=== PATIENT | male | born 1980 | race Caucasian/White ===

== ENCOUNTER 2018-04-29 09:35 | Day surgery (SDC) | payer OTHER ==
[~2018-04-29] VITALS: Ht 185.4 cm; Wt 114.2 kg
[~2018-04-29 09:35] MED LIST: CRUTCH3 USE; CYCL10 PO; HYDACE5 PO; IBUP800 PO; META800 PO; NAPR500 PO; OXYCODONE PO; Oxycodone HCl20 M1 PO; RXCYCL10 PO; RXTRAM50 PO; Senna8.6 MG PO; TRAM50 PO
--- NOTE | 2018-04-29 10:41 | NUR ---
04/29/18 1041 Khang Payton 3ML [address] 200 M INJECTED INTO OPSITE AT 1042 BY SURESH.
== END 2018-04-29 11:10 | disposition home or self-care (01) ==
LOC: ORSCSDS 09:35
PROVIDERS: Anesthesiology
PROC: 3E0R33Z Introduction of Anti-inflammatory into Spinal Canal, Percutaneous Approach (ICD-10-PCS; principal; 2018-04-29 10:30)
DX: M54.16 Radiculopathy, lumbar region (principal)
CPT/HCPCS: J1040

== ENCOUNTER 2018-06-15 14:21 | Day surgery (SDC) | payer OTHER ==
[~2018-06-15] VITALS: Ht 185.4 cm; Wt 115.1 kg
== END 2018-06-15 15:16 | disposition home or self-care (01) ==
LOC: ORSCSDS 14:21
PROVIDERS: Anesthesiology
PROC: 3E0R33Z Introduction of Anti-inflammatory into Spinal Canal, Percutaneous Approach (ICD-10-PCS; principal; 2018-06-15 15:00)
DX: M96.1 Postlaminectomy syndrome, not elsewhere classified (principal); M54.16 Radiculopathy, lumbar region; Z79.899 Other long term (current) drug therapy
CPT/HCPCS: J1040

== ENCOUNTER 2019-04-19 18:46 | Emergency (ER) | payer OTHER ==
[~2019-04-19] VITALS: Ht 185.4 cm; Wt 108.9 kg
[2019-04-19 20:04] LABS: BASOPHILS ABSOLUTE AUTO 0.04 K/mm3 (0.00-0.23); BASOPHILS PERCENT AUTO 0 % (0-2); EOSINOPHILS PERCENT AUTO 3 % (0-6); Hematocrit 46.4 % (37.0-53.0); Hemoglobin 16.1 g/dL (13.5-17.5); IMMATURE GRAN ABSOLUTE AUTO 0.02 K/mm3 (0.00-0.10); IMMATURE GRAN PERCENT AUTO 0 % (0-1); LYMPHOCYTES ABSOLUTE AUTO 2.19 K/mm3 (0.84-5.20); LYMPHOCYTES PERCENT AUTO 24 % (21-46); MONOCYTES ABSOLUTE AUTO 0.56 K/mm3 (0.16-1.47); MONOCYTES PERCENT AUTO 6 % (4-13); Mean Corpuscular HGB 30.7 pg (26.0-34.0); Mean Corpuscular HGB Conc 34.7 g/dL (31.5-36.5); Mean Corpuscular Volume 88 fL (80-100); Mean Platelet Volume 11.4 fL (9.1-12.4); NEUTROPHILS ABSOLUTE AUTO 5.91 K/mm3 (1.96-9.15); NEUTROPHILS PERCENT AUTO 66 % (41-73); Platelet Count 215 K/mm3 (150-400); RDW Coefficient Variation 12.1 % (11.7-14.2); RDW Standard Deviation 39.4 fL (35.1-46.3); Red Blood Cell Count 5.25 M/mm3 (4.30-5.90); White Blood Cell Count 9.02 K/mm3 (4.00-11.30)
[2019-04-19 20:27] LABS: Alanine Aminotransfer (ALT/SGP 61 U/L (12-78); Albumin, Blood 4.6 g/dL (3.4-5.0); Albumin/Globulin Ratio 1.3 (0.8-1.8); Alk Phos 65 U/L (50-136); Anion Gap 6 mmol/L (6-16); Aspartate Aminotrans (AST/SGOT 29 U/L (12-37); Bilirubin, Total 0.4 mg/dL (0.1-1.0); Blood Urea Nitrogen 18 mg/dL (8-24); Bun/Creatinine Ratio 16.7 (12.0-20.0); CO2, Blood 29 mmol/L (21-32); Calcium, Blood 9.1 mg/dL (8.5-10.1); Chloride, Blood 107 mmol/L (98-108); Creatinine, Blood 1.08 mg/dL (0.60-1.20); Globulin, Blood 3.5 g/dL (2.2-4.0); Glomerular Filtration Rate >60 (60-); Glucose, Blood 88 mg/dL (70-99); Potassium, Blood 4.1 mmol/L (3.5-5.5); Sodium, Blood 142 mmol/L (136-145); Total Protein, Blood 8.1 g/dL (6.4-8.2)
== END 2019-04-19 23:57 | disposition home or self-care (01) ==
LOC: ER 18:46
PROVIDERS: Physician Assistant
DX: R13.10 Dysphagia, unspecified (principal); Z88.0 Allergy status to penicillin
CPT/HCPCS: 36415; 74022; 80053; 83690; 85025; 96361; 96374; 99283-25; J2405; J7030

== ENCOUNTER 2024-12-27 11:33 | Day surgery (SDC) | payer OTHER ==
[~2024-12-27] VITALS: Ht 185.4 cm; Wt 115.2 kg
[2024-12-27] MEDS ORDERED: CeFAZolin Sodium 2,000 MG VIAL ONE (11:38)
[2024-12-27] MEDS ORDERED: Tranexamic Acid 100 ML IV ONE (11:39)
[2024-12-27] MEDS ORDERED: Midazolam HCl 1MG / ML 2ML Vial ONE (12:32)
[2024-12-27] MEDS ORDERED: FentaNYL Citrate 50 MCG/ML 2 ML Injection ONE ×2 (12:32→14:01)
[2024-12-27] MEDS ORDERED: Lidocaine 1%-Epineph 1:100000 20 ML MDV ONE (12:43)
[2024-12-27] MEDS ORDERED: Bupivacaine 0.5% W/EPI 1:200000 SDV 30 ML Vial ONE (12:45)
[2024-12-27] MEDS ORDERED: Dexamethasone Sod Phos 10 MG/ML 1ML VIAL ONE (12:50)
[2024-12-27] MEDS ORDERED: Ondansetron HCl 2 MG / ML 2ML Vial ONE (12:50)
--- NOTE | 2024-12-27 14:13 | NUR ---
12/27/24 1413 Coral Seth INITIAL INCISION MADE AT [address] HILL. PROCEDURE WAS STOPPED DUE TO INADEQUATE EQUIPMENT PER DR HILL. PROCEDURE RESTART AT 1354 AFTER PROPER EQUIPMENT HAD FINISHED THE STERILIZATION PROCESS AND COOLED ENOUGH TO SAFELY USE.
[2024-12-27] MEDS ORDERED: Ketorolac Tromethamine 30mg Vial ONE (14:15)
[2024-12-27 14:41] VITALS: BP 142/89
--- NOTE | 2024-12-27 14:44 | NUR ---
12/27/24 1444 Ld Oswald PT DENIES PAIN OR NAUSEA
== END 2024-12-27 15:30 | disposition home or self-care (01) ==
LOC: ORSCSDS 11:33
PROVIDERS: Orthopaedic Surgery Sports Medicine
PROC: 0SBC4ZZ Excision of Right Knee Joint, Percutaneous Endoscopic Approach (ICD-10-PCS; principal; 2024-12-27 13:00)
DX: M23.221 Derangement of posterior horn of medial meniscus due to old tear or injury, right knee (principal); M22.41 Chondromalacia patellae, right knee; K21.9 Gastro-esophageal reflux disease without esophagitis; Z79.899 Other long term (current) drug therapy; E66.9 Obesity, unspecified; Z68.33 Body mass index [BMI] 33.0-33.9, adult
CPT/HCPCS: J0166; J0690; J1100; J1885; J2250; J2405; J2704; J3010; J7120